=== PATIENT | female | born 1950 | race Caucasian/White ===

== ENCOUNTER → 2017-02-26 13:47 | Outpatient (CLI) | payer MEDICARE | END | disposition home or self-care (01) | LOC: D.MAMMO 01-23 09:00 | DX: Z12.31 Encounter for screening mammogram for malignant neoplasm of breast (principal) ==

== ENCOUNTER 2018-02-25 10:43 | Emergency (ER) | payer MEDICARE, OTHER ==
[~2018-02-25] VITALS: Ht 172.7 cm; Wt 78.5 kg
[2018-02-25 10:51] VITALS: Ht 172.7 cm; Wt 78.5 kg
[2018-02-25 11:34] LABS: ALBUMIN 4.2 g/dL (3.4-5.0); ANION GAP 13.9 mmol/L (8-16); BILIRUBIN - TOTAL 0.48 mg/dL (0.2-1.3); CALCIUM 9.1 mg/dL (8.5-10.1); CARBON DIOXIDE 27.8 mmol/L (21.0-32.0); POTASSIUM - SERUM 3.7 mmol/L (3.5-5.1); PROTEIN - SERUM 7.6 g/dL (6.4-8.2)
[2018-02-25 11:39] LABS: APPEARANCE CLEAR (CLEAR); BILIRUBIN NEGATIVE (NEGATIVE); COLOR STRAW (YELLOW); GLUCOSE NEGATIVE (NEGATIVE); KETONE SMALL mg/dL (NEGATIVE); NITRITE NEGATIVE (NEGATIVE); PROTEIN NEGATIVE (NEGATIVE); UROBILINOGEN NORMAL (NORMAL)
[2018-02-25 11:41] LABS: BACTERIA FEW /hpf (NONE SEEN); EPITHELIAL CELLS OCC /hpf (0-5); RED CELLS - URINE 0-5 /hpf (0-5); WHITE CELLS - URINE OCC /hpf (0-5)
[2018-02-25 12:01] LABS: BASOPHILS 0.1 % (0-2); EOSINOPHILS 0.6 % (0-7); HEMOGLOBIN 13.5 g/dL (12-16); IMMATURE GRANULOCYTES 0.1 % (0-5); LYMPHOCYTES 9.8 % (15-50); MCH 29.3 pg (26.0-34.0); MCHC 33.8 g/dL (31.0-37.0); MCV 86.8 fL (80.0-100.0); MEAN PLATELET VOLUME 9.5 fL (7.4-10.4); MONOCYTES 5.1 % (2-11); NEUTROPHILS 84.3 % (40-80); PLATELET COUNT 143 10x3/uL (130-400); RBC 4.61 10x6/uL (4.00-5.40); RDW 13.5 % (11.5-14.5); WBC 8.3 10x3/uL (4.8-10.8)
[2018-02-25] MEDS ORDERED: HYDROCODONE-IB1 EAC3 PO (13:15)
[2018-02-25] MEDS ORDERED: FLOMAX0.4 MG PO (13:15)
[2018-02-25] MEDS ORDERED: ZOFRAN ODT4 MG/UDTAB PO (13:15)
[2018-02-25 14:12] VITALS: BP 130/074
== END 2018-02-25 14:12 | disposition home or self-care (01) ==
LOC: D.ER 10:43
DX: N20.0 Calculus of kidney (principal)

== ENCOUNTER 2018-03-03 19:00 | Outpatient (CLI) | payer MEDICARE ==
[~2018-03-03 19:00] MED LIST: FLOMAX0.4 MG PO; HYDROCODONE-IB1 EAC3 PO; ZOFRAN ODT4 MG/UDTAB PO
== END 2018-03-03 23:59 | disposition home or self-care (01) ==
LOC: D.MAMMO 19:00
DX: Z12.31 Encounter for screening mammogram for malignant neoplasm of breast (principal)

== ENCOUNTER 2019-03-13 03:49 | Observation (INO) | payer MEDICARE, OTHER ==
[~2019-03-13] VITALS: Ht 172.7 cm; Wt 75.9 kg
--- NOTE | ~2019-03-13 | DS ---
PATIENT:ASHLYN SANTOS :46 MEDICAL RECORD: [id number] DISCHARGE SUMMARY ADMISSION DATE: 03/13/19 DISCHARGE DATE: 03/13/19 DATE OF DISCHARGE: 03/13/2019. DIAGNOSES: 1. Chest pain of unknown etiology. 2. Normal nuclear stress test. 3. Hypertension. HOSPITAL COURSE: Mrs. Santos presents with chest pain; however, nuclear stress testing was normal. Troponins were normal. Discharged home with no cardiac followup; would be happy to follow up with her if she has recurrent chest pain. TRANSINT:[id number] Voice Confirmation ID: [id number] DOCUMENT ID: [id number] ZAINA FARRAR MD CC: [id number] DICTATION DATE: 03/13/19 1442 TROUT FARMER: 03/13/19 2355 DIS IN 03/13/19 [id number] [place] [address]
--- NOTE | ~2019-03-13 | ST ---
PATIENT:ASHLYN SANTOS MEDICAL RECORD: [id number] SEX: F LOCATION:[address] ORDER #: ADMISSION DATE: 03/13/19 AGE OF PATIENT: 68 REFERRING PHYSICIAN: INTERPRETING PHYSICIAN: ZAINA FARRAR MD DATE OF SERVICE: 03/13/2019 PROCEDURE: Nuclear stress test. INDICATION: Chest pain of unknown etiology. She was exercised on standard Lexiscan protocol with 30 mCi of sestamibi injected at peak stress, 11 mCi were used previously for rest images. FINDINGS: Gated SPECT reveals preserved ejection fraction at 85% with good wall motion and thickening and brightening throughout all segments. SPECT imaging Cardiolite was used as myocardial fusion agent. There is homogeneous uptake throughout all segments at rest and stress with no evidence of inducible ischemia or previous infarction. OVERALL IMPRESSION: 1. This is a normal nuclear stress test with no evidence of inducible ischemia or previous infarction. 2. Gated SPECT reveals a preserved ejection fraction at 85%. In this patient with ongoing symptomatology, the current scan does not suggest the presence of hemodynamically significant coronary artery disease. Evaluate noncardiac etiology of chest pain. TRANSINT:[id number] Voice Confirmation ID: [id number] DOCUMENT ID: [id number] ZAINA FARRAR MD CC: [id number] DICTATION DATE: 03/13/19 1339 EVAPORATOR HELPER: 03/13/19 2345 DIS IN 03/13/19 [place] [id number] [place] [id number]
--- NOTE | ~2019-03-13 | HP ---
PATIENT: ASHLYN SANTOS MEDICAL RECORD: [id number] ACCOUNT: [id number] LOCATION:[address] : 46 ADMISSION DATE: 03/13/19 PCP: ZAIDA MCMAHON MD HISTORY AND PHYSICAL EXAMINATION ADMITTING DIAGNOSES: 1. Chest pain compatible with angina. 2. Hypertension. 3. Hyperlipidemia. HISTORY OF PRESENT ILLNESS: Mrs. Santos has had no history of ischemic heart disease. She does have hypertension, hyperlipidemia. She began having chest discomfort that awoke her at 3:00 a.m., some typical components, some atypical components. She is pain free now. Troponin is normal. EKG is with no ST-T abnormalities. She was markedly hypertensive when she came in and tachycardic. She was given labetalol. Her heart rate and blood pressure are much better now. She is pain free. PHYSICAL EXAMINATION: CONSTITUTIONAL/GENERAL APPEARANCE: Well nourished, well developed, appears stated age. Level of distress, comfortable. EYES: Lids and conjunctivae noninjected. No discharge. No pallor. ENT: Lips within normal limit. No cyanosis. No pallor. NECK: Carotid arteries, bilateral normal upstroke. No bruits. No thrills. No jugular venous pressure or distention. CERVICAL LYMPH NODES: Nontender. Nonenlarged. THYROID: Not enlarged. No nodules. CARDIOVASCULAR: Precordial exam, nondisplaced. No heaves or pericardial thrills. Rate and rhythm, regular. Heart sounds, normal S1, normal S2. No S3, no gallop, no rub. Systolic murmur, not heard. Diastolic murmur, not heard. RESPIRATORY: Respiratory effort, unlabored. Normal curvature. No thoracic deformity. No chest wall tenderness. Percussion, resonant. Auscultation, clear. No wheezes, no rales, no rhonchi. ABDOMEN: Soft, nondistended, nontender. MUSCULOSKELETAL: No joint tenderness, normal gait, normal tone. SKIN: Warm and dry. OVERALL IMPRESSION: Chest discomfort compatible with angina. We will risk stratify with stress testing, Cardiolite imaging. Further care depends upon the findings of the stress test. TRANSINT:[id number] Voice Confirmation ID: [id number] DOCUMENT ID: [id number] ZAINA FARRAR MD CC: [id number] DICTATION DATE: 03/13/1944 METAL STUD FRAMER: 03/13/19 0852 ADM IN [facility] [address] [id number]
[2019-03-13 04:20] VITALS: BP 175/90
[2019-03-13 04:20] LABS: BASOPHILS 0.5 % (0-2); EOSINOPHILS 3.2 % (0-7); HEMATOCRIT 41.5 % (36.0-48.0); HEMOGLOBIN 14.4 g/dL (12-16); IMMATURE GRANULOCYTES 0.2 % (0-5); LYMPHOCYTES 34.6 % (15-50); MCH 29.6 pg (26.0-34.0); MCHC 34.7 g/dL (31.0-37.0); MCV 85.2 fL (80.0-100.0); MEAN PLATELET VOLUME 9.1 fL (7.4-10.4); MONOCYTES 10.9 % (2-11); NEUTROPHILS 50.6 % (40-80); RBC 4.87 10x6/uL (4.00-5.40); RDW 13.4 % (11.5-14.5); WBC 4.4 10x3/uL (4.8-10.8)
[2019-03-13 04:21] LABS: PLATELET COUNT 175 10x3/uL (130-400)
[2019-03-13 04:28] LABS: APTT 27.5 SECONDS (22.8-39.4); INR 0.96 (0.85-1.17); PROTIME 12.3 SECONDS (11.6-15.0)
[2019-03-13 04:33] LABS: ALBUMIN 3.9 g/dL (3.4-5.0); ALKALINE PHOSPHATASE 90 U/L (46-116); ALT (SGPT) 15 U/L (10-68); BILIRUBIN - TOTAL 0.27 mg/dL (0.2-1.3); CALC OSMOLALITY 284 mosm/kg (275-300); CALCIUM 9.8 mg/dL (8.5-10.1); CARBON DIOXIDE 28.2 mmol/L (21.0-32.0); CHLORIDE - SERUM 106 mmol/L (98-107); CREATININE - SERUM 0.8 mg/dL (0.6-1.3); POTASSIUM - SERUM 3.6 mmol/L (3.5-5.1); SODIUM 142 mmol/L (136-145); UREA NITROGEN 18 mg/dL (7-18); eGFR NON AFRICAN AMERICAN 75 mL/min (90-120)
[2019-03-13 04:35] LABS: GLUCOSE 96 mg/dL (74-106)
[2019-03-13 04:45] LABS: CKMB 1.2 U/L (0.0-3.6); CREATINE KINASE 56 UL (21-215); MAGNESIUM - SERUM 2.3 mg/dL (1.8-2.4)
[2019-03-13 05:04] LABS: TROPONIN-I < 0.017 ng/mL (0.000-0.060)
--- NOTE | 2019-03-13 05:35 | NUR ---
PATIENT TO HER ROOM, STATED FLUIDS PER MAR, CALL LIGHT WITHIN REACH AND BED IN LOWEST POSITION. PATIENT SHOWING NO S/SX OF DISTRESS. PATIENT STATES SHE IS IN NO PAIN AT THIS TIME
[2019-03-13] MEDS ORDERED: ACCUPRIL20 MG PO (05:57)
[2019-03-13] MEDS ORDERED: PRAVACHOL20 MG PO (05:58)
[2019-03-13] MEDS ORDERED: CO Q-10100 MG PO (05:59)
[2019-03-13] MEDS ORDERED: VITAMIN D31000 UNIT PO (05:59)
--- NOTE | 2019-03-13 08:14 | NUR ---
PATIENT IS MADE NPO FOR STRESS TEST THIS AM, THIS WAS ORDERED FROM THE ED.
[2019-03-13 08:40] VITALS: BP 145/79; BMI 25.4
[2019-03-13 08:59] VITALS: BP 143/77
[2019-03-13 09:51] VITALS: Ht 172.7 cm; Wt 75.9 kg
--- NOTE | 2019-03-13 10:47 | NUR ---
TO RADIOLOGY FOR STRESS TEST.
--- NOTE | 2019-03-13 11:25 | NUR ---
RETURNS FROM STESS TEST.
--- NOTE | 2019-03-13 13:18 | NUR ---
BACK TO RADIOLOGY PAST EATING LUNCH.
[2019-03-13 16:17] VITALS: BP 124/63
--- NOTE | 2019-03-13 16:32 | NUR ---
VERBAL AND WRITTEN DISCHARGE INSTRUCTIONS GIVEN TO PATIENT AND SPOUSE. SALINE LOCK REMOVED WITH CATH TIP INTACT. HEART MONITOR TURNED IN. DISCHARGED HOME VIA WHEELCHAIR.
--- NOTE | 2019-03-16 09:32 | MORECARE ---
CASE MANAGEMENT DISCHARGE SUMMARY PATIENT: ASHLYN SANTOS UNIT: [id number] ADM DATE: 03/13/19 AGE: 68 : 46 SEX: F ROOM/BED: D.608 AUTHOR: DANE SILVA PHYSICIAN: REFERRING PHYSICIAN: ZAINA FARRAR MD DATE OF SERVICE: 03/16/19 Discharge Plan Patient Name: ASHLYN SANTOS Facility: [facility]:[place] : 1950 Planned Disposition: Home Anticipated Discharge Date: 03/13/19 Discharge Date: 03/13/2019 Expected LOS: 1 Initial Reviewer: [email or web address] Initial Review Date: 03/16/2019 Generated: 03/16/19 10:32 am Patient Name: ASHLYN SANTOS Page 24219 at 0932 All edits/amendments must be made on the electronic document DICTATION DATE: 03/16/19931 GLOBAL PROCESS OWNER: HUSSEIN 03/16/19931 RPT#: [id number] DC DATE:03/13/19 STATUS: DIS IN [facility] [address] [place] [address] END OF REPORT
== END 2019-03-13 16:32 | disposition home or self-care (01) ==
LOC: D.ER 03:49 → OBSVTIME 04:24 → D.M2 04:24
PROVIDERS: Family Medicine; ADMIT Internal Medicine Interventional Cardiology; ATTEND Internal Medicine Interventional Cardiology
DX: R07.9 Chest pain, unspecified (principal); I10 Essential (primary) hypertension; E78.5 Hyperlipidemia, unspecified

== ENCOUNTER 2019-03-25 19:00 | Outpatient (CLI) | payer MEDICARE, OTHER ==
[2019-03-13 09:51] VITALS: BMI 25.4
[~2019-03-25 19:00] MED LIST changes: +ACCUPRIL20 MG PO; +CO Q-10100 MG PO; +PRAVACHOL20 MG PO; +VITAMIN D31000 UNIT PO
== END 2019-03-25 23:59 | disposition home or self-care (01) ==
LOC: D.MAMMO 19:00
PROVIDERS: ATTEND Family Medicine
DX: Z12.31 Encounter for screening mammogram for malignant neoplasm of breast (principal)

== ENCOUNTER 2019-04-15 09:00 | Outpatient (CLI) | payer MEDICARE, OTHER ==
[2019-03-13 09:51] VITALS: BMI 25.4
== END 2019-04-15 10:00 | disposition home or self-care (01) ==
LOC: D.MAMMO 09:00
PROVIDERS: ATTEND Family Medicine
DX: R92.8 Other abnormal and inconclusive findings on diagnostic imaging of breast (principal)